=== PATIENT | female | born 2000 | race Caucasian/White ===

== ENCOUNTER 2021-10-17 07:50 | Emergency (ER) | payer BC, SELFPAY ==
[2021-10-17 07:51] VITALS: BP 146/93; PULSE 95; RESP 14; TEMP 36.7; O2SAT 97; BMI 22.8
--- NOTE | 2021-10-17 08:04 | ED.VIS.GI ---
HPI HPI - GI History of Present Illness Chief Complaint: Abd Pain Detail of Chief Complaint: Epigastric and left upper quadrant abdominal pain since October 10 Informant: patient Abdominal Pain/Flank Pain Onset: Weeks Context: Sudden Onset Timing: Continuous Quality: - (Continuous pressure with an occasional sharp episode) Location: Epigastric and LUQ Current Severity: Mild Maximum Severity: Severe Worsened by: Food (Does not matter what type of food. Also, increased with liquids) Relieved by: Nothing Nausea/Vomiting/Emesis GI Symptom: Positive for Nausea; Negative for Vomiting Diarrhea/Melena/Hematochezia GI Symptom: Negative for Diarrhea, Melena or Hematochezia Associated Symptoms Associated Symptoms: Positive for Frequency (Patient attributes this to drinking more water.); Negative for Dysuria, Hematuria or Urgency LMP: 1 month ago. Patient states she has a menstrual period every 3 months. Narrative Narrative: Patient is a 20-year-old female status post appendectomy with history of major depressive disorder who presents with continuous epigastric and left upper quadrant pain that radiates through to her back. The pain is made worse eating any type of food or drinking even liquids now. The pain is described as a pressure sensation with occasional sharp discomfort. She does endorse frequency, which she attributes to drinking more water to stay hydrated because she has a headache. She denies fever or chills. She denies ocular, visual or auditory symptoms. She denies upper respiratory infectious symptoms. She denies chest discomfort. She is status post appendectomy. She states the pain is similar, but the pain is in a different location. She has not taken anything for the pain. She attempted Pepto-Bismol last evening. She states the Pepto-Bismol made the pain worse. There is no history of trauma. Prior similar symptoms: No Recent Illness/Hospitalization: No [facility] Medical History (Updated 10/17/21 @ 13:[address] Christopher Clay MD) Cholelithiasis Depression Ureterolithiasis Home Medications desogestrel 0.15 mg-ethinyl estradiol 0.03 mg tablet (Apri) 1 ea PO QHS 02/16/14 [History Last Taken Unknown] hydrocodone-acetaminophen 5-325mg 5mg-325mg 1 tab PO Q6H PRN PRN Pain ##10 10/31/16 [Rx Last Taken Unknown] omeprazole 40 mg capsule,delayed release 40 mg PO DAILY #30 caps 10/17/21 [Rx Last Taken Unknown] Allergy/AdvReac Type Severity Reaction Status Date / Time amoxicillin [Amoxicillin] Allergy Rash Verified 10/17/21 07:53 oxycodone Allergy Rash Verified 10/17/21 07:53 prednisone Allergy Rash Verified 10/17/21 07:53 cefadroxil hydrate AdvReac Vomiting Verified 10/17/21 07:53 [From Jayson] Family History (Updated 10/17/21 @ 08:[address] Christopher Clay MD) Father Heart disease Grandfather Heart disease Other Cholelithiasis Surgical History History of appendectomy History of breast augmentation History of elbow surgery Social History (Updated 10/17/21 @ 08:[address] Christopher Clay MD) household members: family Smoking Status: Never smoker substance use type: does not use ROS ROS ED Constitutional Constitutional ED: Denies chills, fever(s), subjective or sweats ENT ENT ED: Denies ear pain, rhinorrhea or sore throat Cardiovascular Cardiovascular: Denies chest pain, palpitations or racing heartbeat Respiratory/Chest Respiratory/Chest: Denies cough, dyspnea or dyspnea on exertion Gastrointestinal Gastrointestinal: Reports abdominal pain and nausea; Denies constipation, diarrhea, melena or vomiting Genitourinary Genitourinary ED: Reports LMP (females 10-50) Details: Comment: (1 month ago as previously documented) and other Details: Frequency ; Denies dysuria or hematuria Musculoskeletal Musculoskeletal: Reports back pain; Denies arthralgias, myalgias or neck pain Integumentary Denies abscess, Abrasions or rash Neurologic Neurologic: Reports headache(s); Denies weakness Endocrine Endocrinology: Denies polydipsia, polyphagia or polyuria EXAM Physical Exam Const Vital Signs: 10/17/21 07:51 10/17/21 10:16 Temperature 98.1 F Temperature Source Temporal Pulse Rate 95 63 Respiratory Rate 14 Blood Pressure 146/93 H Blood Pressure Mean 110 Pulse Ox 97 98 Oxygen Delivery Method Room Air Room Air Positive well nourished and well developed General Appearance ED: well developed and NAD; Negative for pallor HEENT Reports moist mucous membranes HEENT Narrative: Ears normal. Nares patent. Teeth normal. Mucosa moist. Uvula midline. No erythema or exudate. normocephalic and atraumatic Eyes PERRL and EOMs intact bilaterally General Eye ED: Negative for pale conjunctiva or scleral icterus Neck no lymphadenopathy, supple and no JVD Resp normal respiratory effort and clear to auscultation bilaterally Cardio regular rate, regular rhythm, S1 normal heart sound, S2 normal heart sound and no murmurs GI non-distended and no masses Inspection: Negative for abdominal distention Auscultation: hypoactive bowel sounds Palpation: soft and tender epigastric, LUQ and Malloy's sign; Negative for guarding, rigid, hepatomegaly, splenomegaly, hernia or mass Back/Spine no CVA tenderness Thoracic Spine / Upper Back: Negative for thoracic spinal tenderness Lumbar Spine / Lower Back: Negative for lumbar spinal tenderness Extremity full ROM General Extremety ED: Negative for edema or tenderness General Extremity: Negative for edema Neuro CN's II-XII intact bilaterally, moves all extremities and no sensory deficits noted Sensorium / Orientation: alert, oriented to person, oriented to place and oriented to time Motor Exam: strength 5/5 throughout Psych mental status grossly normal and thought process normal Skin no wounds General Skin Exam: Negative for jaundice or pallor Lesions: no lesions Rashes: no rashes MDM MDM MDM Narrative Medical decision making narrative: Patient with epigastric left upper quadrant pain differential diagnosis would be abdominal pain of unknown etiology, gastritis/peptic ulcer disease, cholelithiasis with biliary colic, pancreatitis. CBC, comprehensive metabolic panel, lipase were ordered. Patient states she has not eaten since 8 PM last evening. If transaminases are elevated will obtain ultrasound right upper quadrant. She did receive 20 mg of Pepcid IV piggyback. Patient was reassessed at 0919. Patient states she has more sharp pain then pressure sensation after IV Pepcid. Since transaminases and lipase are normal and she reports a fullness sensation will administer GI cocktail to see if this helps her discomfort. Went to reassess patient at 0957. She has not received her oral meds. Will reassess in 30 minutes. I was informed that 1022 the patient is more nauseous after drinking the GI cocktail. Patient was reassessed at 03/24/2002. Patient is in more discomfort. She now has pain in the right upper quadrant. She has an equivocal Malloy sign. We will treat with IV opiates since IV Pepcid, Bentyl and GI cocktail did not have any effect on her pain. Went to reassess patient at 1142. She was not in the room. Mother informed that the forklift technician got her for the right upper quadrant ultrasound. Mother did inform me that the Dilaudid helped her pain significantly. With normal laboratory studies, normal ultrasound of the right upper quadrant patient was informed the cause of her pain is unknown. She was discharged with prescription for omeprazole and referred to Dr. Varghese Lab Data Attestation: I reviewed the patient's lab results. Lab results narrative: CBC is normal with the exception of lymphocytosis. Comprehensive metabolic panel is essentially normal urine is negative for leukoesterase, blood and nitrites. Micro is negative for RBCs and WBCs however there is 1+ bacteria. Labs: Laboratory Results - last 24 hr 10/17/21 10/17/21 10/17/21 08:20 08:20 08:20 WBC 4.8 RBC 5.05 Hgb 14.5 Hct 43.1 MCV 85.3 MCH 28.7 MCHC 33.6 RDW Std Deviation 38.8 RDW Coeff of Bernardo 12.6 Plt Count 240 MPV 8.9 Immature Gran % (Auto) 0.200 Neut % (Auto) 43.7 L Lymph % (Auto) 49.2 H Clare % (Auto) 6.3 Eos % (Auto) 0.4 Baso % (Auto) 0.2 Absolute Neuts (auto) 2.1 Absolute Lymphs (auto) 2.36 Nucleated RBC % 0 Sodium 136 Potassium 4.1 Chloride 106 Carbon Dioxide 24.0 Anion Gap 6 BUN 8 Creatinine 0.85 Estim Creat Clear Calc 82.11 Est GFR (MDRD) Af Amer 106 Est GFR (MDRD) Non-Af 88 BUN/Creatinine Ratio 9.4 L Glucose 85 Calcium 9.2 Total Bilirubin 0.60 AST 16 ALT 9 L Alkaline Phosphatase 52 Total Protein 7.3 Albumin 3.2 Globulin 4.1 Albumin/Globulin Ratio 0.8 L Lipase 73 Urine Color Yellow Urine Clarity Sl. Cloudy Urine pH 5.0 Ur Specific [place] 1.020 Urine Protein Negative Urine Glucose (UA) Normal Urine Ketones Negative Urine Occult Blood Negative Urine Nitrite Negative Urine Bilirubin Negative Urine Urobilinogen Normal Ur Leukocyte Esterase Negative Urine RBC 0 SEEN Urine WBC 0 SEEN Ur Squamous Epith Cells 0-5 SEEN Urine Bacteria 1+ Urine Mucus 0 SEEN Radiography Diagnostic Testing: Clinical Impression(s) from Imaging Studies Gallbladder Ultrasound 10/17/21 11:05 IMPRESSION: Normal right upper quadrant ultrasound examination. Electronically Signed: Percy Burgos MD at 12:29 EDT , Discharge Plan Triage Chief Complaint: Abd Pain ED Provider: Kenneth Clayo Dx/Rx/DC Orders Clinical Impression: Acute epigastric pain, Continuous left upper quadrant pain Instructions: ED Epigastric Pain Uncertain Cause Prescriptions: New omeprazole 40 mg capsule,delayed release(DR/EC) 40 mg PO DAILY Qty: 30 0RF No Action desogestrel-ethinyl estradiol [Apri] 1 EACH tablet 1 ea PO QHS hydrocodone-acetaminophen 1 TABLET tablet 1 tab PO Q6H PRN PRN (Reason: Pain) Qty: 10 0RF Primary Care Provider: Care Physician,No Primary Referrals: Dane Ram MD [NON-STAFF] - Salvador Varghese DO [Med Staff - Active Staff] - 1 Week Disposition Disposition: Home, Self Care
[2021-10-17] MEDS: Famotidine 200 MG/20 ML MDV 20 MG in 0.9% Normal Saline (Pres. free 8 ML 300 MG IV (08:28)
[2021-10-17 08:47] LABS: Mucous, Urine 0 SEEN /hpf (<or=2+); Red Blood Cells-Urine 0 SEEN /hpf (0-5); White Blood Cells 0 SEEN /hpf (0-5)
[2021-10-17 08:51] LABS: Absolute Lymphocyte Count 2.36 X10^3/uL (0.83-4.51); Absolute Neutrophil Count 2.1 X10^3/uL (2.0-7.7); Basophil# 0.01 X10^3/uL; Basophil% 0.2 % (0-1); Eosinophil# 0.02 X10^3/uL; Eosinophils% 0.4 % (0-5); Hematocrit 43.1 % (37-47); Hemoglobin 14.5 g/dL (12.0-15.0); Lymphocyte # 2.36 X10^3/ul (0.83-4.51); Lymphocyte % 49.2 % (19-41); Mean Corp Hgb Conc 33.6 g/dL (32-36); Mean Corpuscular Hgb 28.7 pg (27.0-32.0); Mean Corpuscular Volume 85.3 fL (81-99); Mean Platelet Vol. 8.9 fl (6.2-12.0); Monocyte% 6.3 % (0-10); NRBC Flagged by Analyzer 0 % (0-5); Neutrophil % 43.7 % (47-70); Platelet Count 240 K/mm3 (150-450); RBC Distribution Width CV 12.6 % (11.6-14.6); RBC Distribution Width SD 38.8 fl (35.1-43.9); Red Blood Count 5.05 M/mm3 (4.2-5.4); White Blood Count 4.8 K/mm3 (4.4-11.0)
[2021-10-17 08:55] LABS: Color, Urine Yellow (Yellow); Glucose, Dipstick Normal (Normal); Ketone-Dipstick Negative (Negative); Leukocyte Esterase-Dipstick Negative /ul (Negative); Nitrite-Dipstick Negative (Negative); Occult Blood-Urine Negative /ul (Negative); Protein-Dipstick Negative (Negative); Urine Bilirubin Dipstick Negative (Negative); Urine Clarity Sl. Cloudy (Clear); Urine Urobilinogen Normal (Normal)
[2021-10-17 09:05] LABS: Bacteria 1+ /hpf (None Seen); Squamous Epithelial Cells - UA 0-5 SEEN /hpf (5-10)
[2021-10-17 09:13] LABS: ALB/GLOB Ratio 0.8 RATIO (0.9-2.4); AST(SGOT) 16 U/L (15-37); Alanine Aminotransfer ALT/SGPT 9 U/L (13-56); Albumin, Serum 3.2 g/dL (3.2-5.0); Alkaline Phosphatase 52 U/L (45-117); Anion Gap 6 (5-15); BUN 8 mg/dL (7-18); BUN/Creat Ratio 9.4 RATIO (10-20); Calcium,Total 9.2 mg/dL (8.5-10.1); Chloride 106 mmol/L (98-107); Creatinine, Serum 0.85 mg/dL (0.55-1.02); EST Glomerular Filtration Rate 88 mL/min (>60); Est Glom Filt Rate - Afr Amer 106 mL/min (>60); Estimated Creatinine Clearance 82.11 ml/min; Globulin 4.1 g/dL (2.2-4.2); Glucose 85 mg/dL (74-106); Lipase 73 U/L (73-393); Potassium 4.1 mmol/L (3.5-5.1); Protein, Total 7.3 g/dL (6.4-8.2); Sodium Level 136 mmol/L (136-145)
[2021-10-17] MEDS: Mag Hydrox/Al Hydrox/Simeth 30 ML UDC PO (10:11)
[2021-10-17 10:16] VITALS: PULSE 63; O2SAT 98
--- NOTE | 2021-10-17 11:05 | US_ITS ---
STUDY: ABDOMINAL ULTRASOUND - RIGHT UPPER QUADRANT REASON FOR VISIT: Female, 20 years old . Right upper quadrant pain. TECHNIQUE: Ultrasound evaluation of the right upper quadrant was performed with real-time and static pizano-scale imaging. TECHNICAL QUALITY: Adequate. COMPARISON: None. FINDINGS: Liver: The liver measures 12.4 cm. There is normal echogenicity of the liver. The bile ducts are within normal limits. There is hepatic color flow. The direction of portal flow is hepatopetal. There is no demonstrated mass lesion. Gallbladder: Normal distended gallbladder. The gallbladder wall measures 2 mm. There is a negative sonographic Malloy''s sign. There is no pericholecystic fluid. There are no gallstones. Common Bile Duct (C.B.D.): The common bile duct measures 2 mm. Pancreas: Normal size of the head, body and tail of the pancreas. There is normal echogenicity of the pancreas. There is no demonstrated pancreatic mass or cyst. Right Kidney: Normal size of the right kidney. The right kidney measures 10.7 cm x 4.5 cm x 3.8 cm. Normal renal cortex. The right cortex measures 1.3 cm. There is no demonstrated renal mass or cyst. There is no right hydronephrosis. US/Gallbladder IMPRESSION: Normal right upper quadrant ultrasound examination. Electronically Signed: Percy Burgos MD at 12:29 EDT ,
[2021-10-17] MEDS: HYDROmorphone 0.5 MG/0.5 ML SYRINGE IV (11:30)
== END 2021-10-17 13:47 | disposition home or self-care (01) ==
PROVIDERS: Emergency Provider Emergency Medicine; Visit Provider Emergency Medicine
DX: R10.13 Epigastric pain (principal); R10.12 Left upper quadrant pain; F32.A Depression, unspecified; Z79.899 Other long term (current) drug therapy; Z87.19 Personal history of other diseases of the digestive system; Z90.49 Acquired absence of other specified parts of digestive tract
CPT/HCPCS: 76705; 80053; 81001; 83690; 85025; 96365; 96366; 96375; 99283; A4216; J3490